=== PATIENT | female | born 1950 | race Caucasian/White ===

== ENCOUNTER 2016-10-22 20:19 | Emergency (ER) | payer BC ==
[2016-10-22 20:38] LABS: Urine Bilirubin 1 mg/dl (NEGATIVE); Urine Blood 250 /ul (NEGATIVE); Urine Ketone Negative (NEGATIVE); Urine Nitrite Negative (NEGATIVE); Urine Protein 100 mg/dL (NEGATIVE); Urine Specific Gravity >=1.030 SP.GR. (1.005-1.010); Urine Urobilinogen Normal (NORMAL)
[2016-10-22 20:39] VITALS: BP 152/91
[2016-10-22] MEDS ORDERED: PHENAZOPYRIDINE HCL 100 MG TABLET PO ONE ×2 (20:42→21:10)
[2016-10-22] MEDS ORDERED: PHENAZOPYRIDINE HCL 100 MG TABLET ONE ×2 (20:43→21:11)
[2016-10-22 20:53] LABS: Urine Appearance Cloudy; Urine Color Amber
[2016-10-22 20:54] LABS: Urine RBC >50 /hpf (0-5); Urine WBC >50 /hpf (0-5)
--- NOTE | 2016-10-22 20:59 | ERNOTE ---
ER Female HPI Date of Service: 10/22/16 Stated Complaint: UTI Presenting Symptoms: dysuria Time Seen by Provider: 10/22/16 20:49 Source: patient Exam Limitations: no limitations Immunizations: IMMUNIZATION HX Immunizations Up to Date Yes History of Influenza Vaccine No Hx Pneumococcal Vaccination Yes Allergies/Adverse Reactions: Allergies morphine Allergy (Intermediate, Verified 10/22/16 20:39) hallucinations codeine [Codeine] Allergy (Unknown, Verified 10/22/16 20:39) Nausea FROM AMB. ORDERS Home Medications: HOME MEDICATIONS DULoxetine HCL [Cymbalta] 40 mg PO DAILY 05/13/12 [Last Taken Unknown] Levothyroxine Sodium [Synthroid] 125 mcg PO DAILY 05/13/12 [Last Taken Unknown] Calcium Carbonate [Calcium] 1,200 mg PO DAILY 09/25/12 [Last Taken Unknown] Estrogens,Conjugated [Premarin] 1.25 mg PO DAILY 09/25/12 [Last Taken Unknown] Multivitamins 07/14/13 [Last Taken Unknown] Ciprofloxacin HCl [Cipro] 500 mg PO BID #20 tab 10/22/16 [Last Taken Unknown] Phenazopyridine HCl [Pyridium] 100 mg PO TID #6 tab 10/22/16 [Last Taken Unknown ] - History of Present Illness Narrative: Pt. comes in with c/o dysuria, urgency, and frequncy for 2 hours. Pt. states that [place] and did not drink as much water as she probably should and then had one episode of dysuria yesterday and then the rest of the symptoms started this evening. pt. has a hx of similar symptoms frequently that are diagnosed as UTIs and resolve easily with antibiotics and pyridium. Pt. denies any fever, SOB, CP, NVD, abd pain but does state that she has some mild pelvic pain. Review of Systems - Review of Systems Constitutional: Present: no symptoms reported. Absent: recent illness, fever, chills, weakness, fatigue, malaise EYE: Present: no symptoms reported ENT: Present: no symptoms reported Respiratory: Present: no symptoms reported. Absent: shortness of breath, cough , wheezing Cardiology: Present: no symptoms reported. Absent: chest pain, palpitations, edema Gastrointestinal/Abdominal: Present: no symptoms reported. Absent: nausea, vomiting, diarrhea, abdominal pain Genitourinary: Present: frequency, pain - pelvic, dysuria, hematuria Musculoskeletal: Present: no symptoms reported. Absent: back pain, joint pain Skin: Present: no symptoms reported Neurological: Present: no symptoms reported. Absent: headache, dizziness/light- headedness, numbness, tingling All Other Systems: All systems neg except as marked - Patient's Past Medical History Patient History - Medical: Depression, Hypothyroidism, UTI'S Patient History - Cardiac/Respiratory: No pertinent hx Patient History - Cancer: No Hx of Cancer Patient History - Surgical Procedures: Appendectomy, Back Surgery, Cholecystectomy, , T & A, Other Patient History - Other: None - Social History Living Situations: spouse Psych History: No pertinent hx Smoking Status: Never smoker Have you smoked in the past 12 months: No Do you dip or chew tobacco: No Alcohol Use: none Drug Use: none - Immunizations Immunizations Up to Date: Yes Hx Pneumococcal Vaccination: Yes History of Influenza Vaccine: No Physical Exam - Physical Exam General Appearance: Present: wd/wn, alert, no apparent distress Head Exam: Present: normal inspection, no evidence of injury Eye Exam: Normal inspection: bilateral Respiratory: Present: no respiratory distress, normal breath sounds, no accessory muscle use, chest nontender, lungs clear Cardiovascular/Chest: Present: regular rate, rhythm, no murmur, normal peripheral pulses Gastrointestinal/Abdominal: Present: normal bowel sounds, nondistended, soft, no organomegaly, tenderness - suprapubic Back Exam: Present: normal inspection, no CVA tenderness Extremity Exam: Present: normal inspection Neurological Exam: Present: alert, oriented, normal mood/affect, no motor/ sensory deficits Skin Exam: Present: normal color, warm/dry. Absent: pallor, skin rash ED Progress - Vital Signs Patient's Vital Signs:: I have reviewed the patient's vital signs. Vital Signs: Vital Signs 10/22/16 20:33 Temperature 37.4 C Pulse Rate 84 Respiratory 18 Rate Blood Pressure 152/91 O2 Sat by Pulse 96 Oximetry - Progress/Reassessment Chief Complaint: Genitourinary Problem Progress:: Improved Departure Clinical Impression: UTI (urinary tract infection) Qualifiers: Urinary tract infection type: acute cystitis Hematuria presence: with hematuria Qualified Code(s): N30.01 - Acute cystitis with hematuria - Departure Disposition: Home self-care Condition: Good Instructions: Urinary Tract Infection, Adult, [id number] Additional Instructions: Please followup with primary provider in 2-3 days. Referrals: Alicia Lawrence MD [Primary Care Provider] - Prescriptions: Ciprofloxacin HCl [Cipro] 500 mg PO BID #20 tab Phenazopyridine HCl [Pyridium] 100 mg PO TID #6 tab
[2016-10-22] MEDS ORDERED: CIPROFLOXACIN HCL 250 MG TABLET PO ONE (21:02)
[2016-10-22] MEDS ORDERED: CIPROFLOXACIN HCL 250 MG TABLET ONE (21:03)
== END 2016-10-22 21:16 | disposition home or self-care (01) ==
LOC: ER 20:19
DX: N30.01 Acute cystitis with hematuria (principal)